=== PATIENT | female | born 2000 | race Caucasian/White ===

== ENCOUNTER 2018-11-16 18:05 | Emergency (ER) | payer OTHER ==
[~2018-11-16] VITALS: Ht 180.3 cm; Wt 59.0 kg
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
--- NOTE | 2018-11-16 18:52 | ED GU-Female ---
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 Since then has had bleeding that lasted for two days last month and has been bleeding for the past two days. Is not bleeding heavy enough to wear a pad, states she is just spotting. Today had a small dark clot on her toilet paper and wanted to be checked out. Nursing Sepsis Screen: No Definite Risk History of Present Illness Date Seen by Provider: Nov 16, 2018 Time Seen by Provider: 18:00 Initial Comments The patient is a 18-year-old female who is otherwise healthy. She presents with concern for 3 months of persistent indolent vaginal bleeding. She has been bleeding through 1-2 pads a day over nearly that entire period. 2 months ago she was started on an oral contraceptive pill to try to control bleeding but she states it has not helped. Today she noticed some scant dark clot along with the bleeding and so decided to come in for evaluation. The patient denies any other symptoms and specifically denies nausea or vomiting, lightheadedness, shortness of breath, abdominal pain other than very mild low abdominal cramping at times, flank pain, back pain, dysuria or hematuria, unusual vaginal discharge, change in bowel habits. Patient does note that she has been treated for Chlamydia twice in the last 2 months. Allergies and Home Medications Allergies Coded Allergies: No Known Drug Allergies (Unverified , 09/07/15) Patient Home Medication List Home Medication List Reviewed: Yes Review of Systems Review of Systems Constitutional: see HPI All Other Systemes Reviewed Negative Unless Noted: Yes Past Ajtdroh-Pwbill-Uepvcn Hx Past Med/Social Hx: Reviewed Nursing Past Med/Soc Hx Patient Social History Alcohol Use: Denies Use Recreational Drug Use: No Smoking Status: Current Everyday Smoker Type Used: Cigarettes 2nd Hand Smoke Exposure: Yes Recent Foreign Travel: No Contact w/Someone Who Travel: No Recent Infectious Disease Expo: No Physical Abuse: No Sexual Abuse: No Mistreated: No Fear: No Seasonal Allergies Seasonal Allergies: No Past Medical History Surgeries: No Respiratory: No Cardiac: No Neurological: No Sexually Transmitted Disease: Yes (chlamydia) Genitourinary: No Gastrointestinal: No Musculoskeletal: No Endocrine: No HEENT: No Cancer: No Psychosocial: No Integumentary: No Blood Disorders: No Adverse Reaction/Blood Tranf: No Family Medical History Reviewed Nursing Family Hx No Pertinent Family Hx Physical Exam Vital Signs Vital Signs - First Documented 11/16/18 18:10 Temp 98.0 Pulse 88 Resp 18 B/P (MAP) 111/59 (76) Pulse Ox 98 Capillary Refill : Less Than 3 Seconds Height, Weight, BMI Height: 5'11.00" Weight: 130lbs. oz. 58.343048mo; 25.82 BMI Method:Stated General Appearance: no apparent distress This is a young female appearing nontoxic and in no acute distress. Head is normocephalic and atraumatic. Neck is supple and nontender. Oropharynx is moist. Lungs are clear to auscultation at all stations. There is a normal S1 and S2 without rubs or gallops and capillary refill is appropriate, less than 2 seconds globally. Abdomen is soft, nontender and nondistended. Skin is warm and dry without cyanosis, clubbing or edema. Psychiatrically, the patient demonstrates appropriate mood and affect and is alert. Genitourinary examination reveals normal external female genitalia with no rashes or lesions and vaginal vault with pink, healthy rugated and scant dark blood noted in the vaginal vault. Cervix is not erythematous and nonfriable and closed without active bleeding. There is no cervical motion tenderness or adnexal tenderness noted. Progress/Results/Core Measures Suspected Sepsis Recent Fever Within 48 Hours: No Infection Criteria Present: None New/Unexplained Altered Menta: No Sepsis Screen: No Definite Risk SIRS Temperature:98.0 Pulse: 88 Respiratory Rate: 18 Blood Pressure 111 /59 Mean: 76 Results/Orders Lab Results Laboratory Tests Test 11/16/18 18:28 11/16/18 18:30 Range/Units Hemoglobin 14.1 11.5-16.0 G/DL Urine Color YELLOW Urine Clarity CLEAR Urine pH 6.0 5-9 Urine Specific [place] 1.025 H 1.016-1.022 Urine Protein NEGATIVE NEGATIVE Urine Glucose (UA) NEGATIVE NEGATIVE Urine Ketones NEGATIVE NEGATIVE Urine Nitrite NEGATIVE NEGATIVE Urine Bilirubin NEGATIVE NEGATIVE Urine Urobilinogen 0.2 NORMAL MG/DL Urine Leukocyte Esterase NEGATIVE NEGATIVE Urine RBC (Auto) 2+ H NEGATIVE Urine RBC 0-2 /HPF Urine WBC 0-2 /HPF Urine Squamous Epithelial Cells 0-2 /HPF Urine Crystals NONE /LPF Urine Bacteria FEW H /HPF Urine Casts NONE /LPF Urine Mucus MODERATE H /LPF Urine Other /HPF Urine Culture Indicated NO Urine Test NEGATIVE NEGATIVE My Orders Orders - KARIE KAUR MD Hemoglobin (11/16/18 18:21) Ua Culture If Indicated (11/16/18 18:21) Hcg,Qualitative Urine (11/16/18 18:21) Culture For Gc Only (11/16/18 18:21) Chlam Dna Probe (11/16/18 18:21) Vital Signs/I&O 11/16/18 18:10 Temp 98.0 Pulse 88 Resp 18 B/P (MAP) 111/59 (76) Pulse Ox 98 Capillary Refill : Less Than 3 Seconds Blood Pressure Mean: 76 Progress Note : Progress Note Clinical examination reassuring. Young woman with 3 months of vaginal bleeding, indolent in nature, already on oral contraceptive pills which are not helping. Will check hemoglobin and urinalysis and urine and will complete a pelvic examination and will send gonorrhea and chlamydia testing and will then reevaluate. 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 The patient understands and agrees with this plan of care. Update 1904: Hemoglobin appropriate and urinalysis but evidence of infection and urine testing is negative. We'll proceed with discharge home at this time and have counseled very close follow-up with gynecology in the next few days. In the meantime, patient is to continue taking her oral contraceptive pill. Patient is comfortable with the plan of care. All questions are answered. We will proceed with discharge home at this time. Departure Impression Primary Impression: Abnormal uterine bleeding (AUB) Disposition: 01 HOME, SELF-CARE Condition: Stable Departure-Patient Inst. Referrals: ALEXA GARCÍA DO (PCP) Primary Care Physician NO,LOCAL PHYSICIAN (Family) Primary Care Physician Patient Instructions: Menstrual Cramps (DC) Add. Discharge Instructions: Follow-up very closely with her commissions coordinator in the next 2-4 days. Return to the emergency department immediately with significantly worsening bleeding, severely worsened pain or any other new concerning problems. Continue to take your oral contraceptive pills and he may use ibuprofen as needed for discomfort. KARIE KAUR MD Nov 16, 2018 18:52
[2018-11-16 18:59] LABS: CLARITY,URINE CLEAR; COLOR,URINE YELLOW
[2018-11-16 19:00] LABS: BILIRUBIN,URINE NEGATIVE (NEGATIVE); GLUCOSE, URINE (UA) NEGATIVE (NEGATIVE); KETONES,URINE NEGATIVE (NEGATIVE); LEUKOCYTE ESTERASE ,URINE NEGATIVE (NEGATIVE); NITRITE,URINE NEGATIVE (NEGATIVE); PROTEIN,URINE NEGATIVE (NEGATIVE); RBC,URINE 0-2 /HPF; UROBILINOGEN,URINE 0.2 MG/DL (NORMAL); WBC,URINE 0-2 /HPF
[2018-11-16 19:01] LABS: BACTERIA,URINE FEW /HPF; SQUAMOUS EPITHELIAL CELL,UR 0-2 /HPF
[2018-11-16 19:10] VITALS: BP 111/59
== END 2018-11-16 19:10 | disposition home or self-care (01) ==
LOC: EDUNIT# 18:05 → ER FS 18:07
DX: N93.9 Abnormal uterine and vaginal bleeding, unspecified (principal); F17.210 Nicotine dependence, cigarettes, uncomplicated; Z86.19 Personal history of other infectious and parasitic diseases
CPT/HCPCS: 36415; 81000; 84703; 85018; 87491; 87591; 99284

== ENCOUNTER 2019-01-03 11:31 | Emergency (ER) | payer SELFPAY ==
[~2019-01-03] VITALS: Ht 180.3 cm; Wt 61.2 kg
--- NOTE | 2019-01-03 11:56 | ED Upper Extremity ---
General Chief Complaint: Upper Extremity Stated Complaint: LT SHOULDER PAIN Nursing Triage Note: Was doing a dance move one week ago and her left shoulder popped and has hurt since then. Has taken some aleve for pain but nothing today. Is currently rating her pain at 0/10 but does increase to 7/10 with movement. Nursing Sepsis Screen: No Definite Risk Source: patient Exam Limitations: no limitations History of Present Illness Date Seen by Provider: Jan 03, 2019 Time Seen by Provider: 11:45 Initial Comments 18-year-old female presents with left shoulder pain. Patient reports that about 1 week ago she was doing a "dance move". She reports that she hurt her left shoulder pop and now has pain in left shoulder at the lateral aspect. She has increased pain with range of motion. She believes she "tore some cartilage" patient reports that she does not have a primary care physician so came to the ER for further evaluation. She has taken some Aleve for the pain but nothing today. She denies any fever, chills, nausea, vomiting or other systemic complai nts. Allergies and Home Medications Allergies Coded Allergies: No Known Drug Allergies (Unverified , 09/07/15) Patient Home Medication List Home Medication List Reviewed: Yes Review of Systems Constitutional: no symptoms reported EENTM: no symptoms reported Respiratory: no symptoms reported Cardiovascular: no symptoms reported Gastrointestinal: no symptoms reported Musculoskeletal: see HPI Skin: no symptoms reported Past Eustfvn-Ycdbot-Cwftac Hx Past Med/Social Hx: Reviewed Nursing Past Med/Soc Hx Patient Social History Alcohol Use: Denies Use Recreational Drug Use: No Smoking Status: Current Everyday Smoker Type Used: Cigarettes 2nd Hand Smoke Exposure: Yes Recent Foreign Travel: No Contact w/Someone Who Travel: No Recent Infectious Disease Expo: No Physical Abuse: No Sexual Abuse: No Mistreated: No Fear: No Seasonal Allergies Seasonal Allergies: No Past Medical History Surgeries: No Respiratory: No Cardiac: No Neurological: No Sexually Transmitted Disease: Yes (chlamydia) Genitourinary: No Gastrointestinal: No Musculoskeletal: No Endocrine: No HEENT: No Cancer: No Psychosocial: No Integumentary: No Blood Disorders: No Adverse Reaction/Blood Tranf: No Family Medical History No Pertinent Family Hx Physical Exam Vital Signs Vital Signs - First Documented 01/03/19 11:37 Temp 98.9 Pulse 117 Resp 16 B/P (MAP) 106/54 (71) Pulse Ox 98 Capillary Refill : Less Than 3 Seconds Height, Weight, BMI Height: 5'11.00" Weight: 135lbs. oz. 61.528858lx; 25.82 BMI Method:Stated General Appearance: WD/WN, no apparent distress Neck: non-tender, full range of motion Cardiovascular: normal peripheral pulses, regular rate, rhythm Respiratory: chest non-tender, lungs clear, normal breath sounds Gastrointestinal: non tender, soft Shoulder: No bone tenderness, No deformity, No ecchymosis; limited ROM (Painful with any range of motion. The pain is on the lateral aspect of the shoulder.), pain Neurologic/Psychiatric: normal mood/affect, oriented x 3 Skin: normal color, warm/dry Progress/Results/Core Measures Results/Orders My Orders Orders - KRZYSZTOF MARCH DO Shoulder 2 View Left (01/03/19 11:44) Vital Signs/I&O 01/03/19 11:37 Temp 98.9 Pulse 117 Resp 16 B/P (MAP) 106/54 (71) Pulse Ox 98 Blood Pressure Mean: 71 Diagnostic Imaging Diagonstic Imaging: Xray Plain Films/CT/US/NM/MRI: other (Shoulder ) Comments no acute finding Reviewed: Reviewed by Me Departure Impression Primary Impression: Sprain of shoulder, left Qualified Codes: S43.402A - Unspecified sprain of left shoulder joint, initial encounter Disposition: 01 HOME, SELF-CARE Condition: Stable Departure-Patient Inst. Referrals: NO,LOCAL PHYSICIAN (PCP/Family) Primary Care Physician Patient Instructions: Shoulder Sprain (DC) Add. Discharge Instructions: Please follow-up with either a primary care physician or orthopedic surgeon for further evaluation including potential physical therapy or MRI if deemed necessary. All discharge instructions reviewed with patient and/or family. Voiced understanding. KRZYSZTOF MARCH DO Jan 03, 2019 11:56
--- NOTE | 2019-01-03 12:03 | Diagnostic Imaging Report ---
EXAMINATION: Left shoulder at 11:32 a.m. INDICATION: Shoulder pain. Two views were obtained. There are no prior studies available for comparison. FINDINGS: There is no fracture, dislocation, or acute bony abnormality evident. The glenohumeral and acromioclavicular joints appear to be fairly well maintained. The soft tissues are unremarkable. IMPRESSION: 1. There is no evidence for an acute bony abnormality. 2. If there is clinical concern regarding an injury to the rotator cuff or labrum, then MRI would be recommended for further evaluation. Dictated by: Dictated on workstation # [id number]
[2019-01-03 12:14] VITALS: BP 106/54
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
== END 2019-01-03 12:14 | disposition home or self-care (01) ==
LOC: EDUNIT# 11:31 → ER FS 11:33
DX: S43.402A Unspecified sprain of left shoulder joint, initial encounter (principal); F17.210 Nicotine dependence, cigarettes, uncomplicated; X50.1XXA Overexertion from prolonged static or awkward postures, initial encounter; Y93.41 Activity, dancing
CPT/HCPCS: 73030

== ENCOUNTER 2022-02-15 11:35 | Emergency (ER) | payer BC, OTHER ==
[~2022-02-15] VITALS: Ht 182 cm; Wt 77.0 kg
--- NOTE | 2022-02-15 12:05 | ED General ---
General Chief Complaint: COVID19 Suspect/Confirmed Stated Complaint: FEVER; GEN ACHING; NASAL DRAINAGE Nursing Triage Note: Patient presents to ER with cc of body aches - she was exposed to covid and believes that she has covid. Source of Information: Patient Exam Limitations: No Limitations History of Present Illness Date Seen by Provider: Feb 15, 2022 Time Seen by Provider: 11:37 Initial Comments 21-year-old female that is 22 weeks coming in due to COVID symptoms after being exposed. Has had 1 day of body aches and nausea. Has been nauseous this but no vomiting. Also having some urinary frequency that is maybe slightly more than usual in this . Denies any diarrhea, vomiting, chest pain, shortness of breath, cough, or any other concerns. Has not had any Tylenol as of yet today. Allergies and Home Medications Allergies Coded Allergies: No Known Drug Allergies (Unverified , 09/07/15) Patient Home Medication List Home Medication List Reviewed: Yes Review of Systems Review of Systems Constitutional: malaise, other (body aches) EENTM: no symptoms reported Respiratory: no symptoms reported Cardiovascular: no symptoms reported Gastrointestinal: nausea Genitourinary: no symptoms reported Musculoskeletal: no symptoms reported Skin: no symptoms reported Psychiatric/Neurological: No Symptoms Reported Hematologic/Lymphatic: No Symptoms Reported Immunological/Allergic: no symptoms reported All Other Systems Reviewed Negative Unless Noted: Yes Past Ilwwgtn-Txpxdc-Dphmwz Hx Patient Social History Tobacco Use?: No Use of E-Cig and/or Vaping dev: Yes E-Cig or Vaping type used: Nicotine Use of E-Cig and/or Vaping Sudhir: Current Everyday User Substance use?: No Alcohol Use?: No Pt feels they are or have been: No Seasonal Allergies Seasonal Allergies: No Past Medical History Surgeries: No Respiratory: No Cardiac: No Neurological: No Sexually Transmitted Disease: Yes (chlamydia) Genitourinary: No Gastrointestinal: No Musculoskeletal: No Endocrine: No HEENT: No Cancer: No Psychosocial: No Integumentary: No Blood Disorders: No Adverse Reaction/Blood Tranf: No Family Medical History No Pertinent Family Hx Physical Exam Vital Signs Vital Signs - First Documented 02/15/22 11:55 Temp 36.9 Pulse 121 Resp 16 B/P (MAP) 97/69 (78) Pulse Ox 97 O2 Delivery Room Air Capillary Refill : Height, Weight, BMI Height: 5'11.00" Weight: 135lbs. oz. 61.791213rw; 23.00 BMI Method:Stated General Appearance: No Apparent Distress, WD/WN HEENT: PERRL/EOMI, Normal ENT Inspection, Pharynx Normal Neck: Full Range of Motion, Normal Inspection, Non Tender, Supple Respiratory: Chest Non Tender, Lungs Clear, Normal Breath Sounds, No Accessory Muscle Use, No Respiratory Distress Cardiovascular: Regular Rate, Rhythm, No Edema, Normal Peripheral Pulses Gastrointestinal: Normal Bowel Sounds, Non Tender, Soft Back: Normal Inspection, No CVA Tenderness Extremity: Normal Capillary Refill, Normal Inspection, Normal Range of Motion, Non Tender, No Calf Tenderness, No Pedal Edema Neurologic/Psychiatric: Alert, No Motor/Sensory Deficits, Normal Mood/Affect Skin: Normal Color, Warm/Dry Lymphatic: No Adenopathy Progress/Results/Core Measures Suspected Sepsis SIRS Temperature: Pulse: 121 Respiratory Rate: 16 Blood Pressure 97 /69 Mean: 78 Results/Orders Lab Results Laboratory Tests Test 02/15/22 11:57 02/15/22 12:32 Range/Units Influenza Type A (RT-PCR) Not Detected Not Detecte Influenza Type B (RT-PCR) Not Detected Not Detecte SARS-CoV-2 RNA (RT-PCR) Detected H Not Detecte Urine Color YELLOW Urine Clarity SL CLOUDY Urine pH 6.0 5-9 Urine Specific [place] <=1.005 1.016-1.022 Urine Protein NEGATIVE NEGATIVE Urine Glucose (UA) NEGATIVE NEGATIVE Urine Ketones 1+ H NEGATIVE Urine Nitrite NEGATIVE NEGATIVE Urine Bilirubin NEGATIVE NEGATIVE Urine Urobilinogen 0.2 < = 1.0 MG/DL Urine Leukocyte Esterase 1+ H NEGATIVE Urine RBC (Auto) NEGATIVE NEGATIVE Urine RBC NONE /HPF Urine WBC 5-10 H /HPF Urine Squamous Epithelial Cells 5-10 /HPF Urine Crystals NONE /LPF Urine Bacteria TRACE /HPF Urine Casts NONE /LPF Urine Mucus NEGATIVE /LPF Urine Culture Indicated YES My Orders Orders - PARUL LARRY MD Influenza A And B By Pcr (02/15/22 11:50) Covid 19 Inhouse Test (02/15/22 11:50) Ua Culture If Indicated (02/15/22 12:02) Acetaminophen Tablet (Tylenol Tablet) (02/15/22 12:15) Urine Culture (02/15/22 12:32) Medications Given in ED Current Medications Medications Dose Ordered Sig/Jordin Route Start Time Stop Time Status Last Admin Dose Admin Acetaminophen 1,000 mg ONCE ONCE PO 02/15/22 12:15 02/15/22 12:16 DC 02/15/22 12:30 1,000 MG Vital Signs/I&O 02/15/22 11:55 Temp 36.9 Pulse 121 Resp 16 B/P (MAP) 97/69 (78) Pulse Ox 97 O2 Delivery Room Air Capillary Refill : Blood Pressure Mean: 78 Progress Note : Progress Note 21-year-old female coming in due to body aches. ABCs were intact and vitals were stable on presentation. Physical exam reassuring including a soft and nontender abdomen. Urinalysis with trace bacteria, and given her status we will treat this. COVID test is positive. Discussed the patient Paxlovid and how this is not technically covered under . We will forego treatment at this time. She got Tylenol here and that is what I will continue to recommend. She was then discharged home in stable condition with strict return precautions Departure Impression Primary Impression: COVID-19 Additional Impression: Asymptomatic bacteriuria during Disposition: HOME, SELF-CARE Condition: Stable Departure-Patient Inst. Decision time for Depature: 12:41 Referrals: NO,LOCAL PHYSICIAN (PCP/Family) Primary Care Physician Patient Instructions: COVID-19 and (DC) Add. Discharge Instructions: Your COVID test is positive. I would isolate from anybody for 5 days from the onset of your symptoms, and recommend wearing a mask for 5 days after that. Take Tylenol 1000 mg every 6 hours as needed for body aches or fever. Follow-up with your regular doctor if things are not improving. If you feel extremely short of breath, your oxygen is low, or you have any concerns then please come back to the ER. You also have bacteria in your urine, and during we do recommend treat ing this. You will be on an antibiotic twice a day for 5 days. Scripts Nitrofurantoin Monohyd/M-Cryst (Macrobid 100 mg Capsule) 100 Mg Capsule 1 TAB PO BID for 5 Days, #10 CAP Prov: PARUL LARRY MD 02/15/22 Work/School Note: Work Release Form Date Seen in the Emergency Department: Feb 15, 2022 Return to Work: Feb 18, 2022 Restrictions: Return-No Fever (24hrs), Return-No Vomiting(24hrs) PARUL LARRY MD Feb 15, 2022 12:04
[2022-02-15] MEDS ORDERED: ACETAMINOPHEN 500 MG TAB (TYLENOL) PO ONE (12:15)
[2022-02-15 12:31] LABS: BILIRUBIN,URINE NEGATIVE (NEGATIVE); CLARITY,URINE SL CLOUDY; COLOR,URINE YELLOW; GLUCOSE, URINE (UA) NEGATIVE (NEGATIVE); KETONES,URINE 1+ (NEGATIVE); LEUKOCYTE ESTERASE ,URINE 1+ (NEGATIVE); NITRITE,URINE NEGATIVE (NEGATIVE); PROTEIN,URINE NEGATIVE (NEGATIVE)
[2022-02-15 12:36] LABS: BACTERIA,URINE TRACE /HPF
[2022-02-15] MEDS ORDERED: NITR-65 PO (12:42)
[2022-02-15 12:43] VITALS: BP 97/69
== END 2022-02-15 12:45 | disposition home or self-care (01) ==
LOC: EDUNIT# 11:35 → ER FS 11:38
DX: O98.512 Other viral diseases complicating pregnancy, second trimester (principal); U07.1 COVID-19; O26.892 Other specified pregnancy related conditions, second trimester; R82.71 Bacteriuria; O99.332 Smoking (tobacco) complicating pregnancy, second trimester; F17.290 Nicotine dependence, other tobacco product, uncomplicated; Z28.310 Unvaccinated for COVID-19; Z3A.22 22 weeks gestation of pregnancy
CPT/HCPCS: 81000; 87088; 87636

== ENCOUNTER 2022-05-09 17:49 | Outpatient (CLI) | payer BC ==
[~2022-05-09] VITALS: Ht 182.9 cm; Wt 83.7 kg
[~2022-05-09 17:49] MED LIST: NITR-65 PO
[2022-05-09] MEDS ORDERED: PREN-172 PO (18:08)
[2022-05-09 18:10] VITALS: BP 113/69
[2022-05-09 18:12] LABS: BILIRUBIN,URINE NEGATIVE (NEGATIVE); CLARITY,URINE CLEAR; COLOR,URINE YELLOW; GLUCOSE, URINE (UA) NEGATIVE (NEGATIVE); KETONES,URINE NEGATIVE (NEGATIVE); LEUKOCYTE ESTERASE ,URINE NEGATIVE (NEGATIVE); NITRITE,URINE NEGATIVE (NEGATIVE); PROTEIN,URINE NEGATIVE (NEGATIVE)
[2022-05-09 18:18] LABS: AMORPHOUS SEDIMENT,UR FEW AMOR URATES /LPF; BACTERIA,URINE NEGATIVE /HPF
--- NOTE | 2022-05-10 08:24 | Physician Query-Final Dx ---
Clinic Account Progress/Dx Physician Query: Please give diagnosis Please include # weeks gestation Date of Service May 09, 2022 at 17:49 ALEX,JunMay 10, 2022 08:24
== END 2022-05-09 18:38 | disposition home or self-care (01) ==
LOC: WSo 17:49 → LDRP 17:49 → WSo 18:38
PROVIDERS: ATTEND Family Medicine
DX: Z34.90 Encounter for supervision of normal pregnancy, unspecified, unspecified trimester (principal); Z3A.00 Weeks of gestation of pregnancy not specified
CPT/HCPCS: 81000; 99213